=== PATIENT | female | born 1990 | race Caucasian/White ===

== ENCOUNTER 2017-08-01 18:17 | Emergency (ER) | payer MEDICAID ==
[2017-08-01 18:26] VITALS: BP 119/76
--- NOTE | 2017-08-01 18:55 | ED Physician Documentation ---
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) Musculoskeletal: None - Past Surgical History Past Surgical History: Yes Ortho: Other - Present Medications Home Medications: Ambulatory Orders Medication Instructions Recorded Confirmed Pnv No.122/Iron/Folic Acid 1 tab PO DAILY 08/01/17 08/01/17 [ Multi Tablet] - Allergies Allergies/Adverse Reactions: Allergies Allergy/AdvReac Type Severity Reaction Status Date / Time No Known Drug Allergies Allergy Verified 04/04/15 09:50 - Social History Does the pt smoke?: Yes Smoking Status: Current every day smoker - Immunizations Immunizations are current?: Yes PD ED PE NORMAL - Vitals Vital signs reviewed: Yes - Extremities Extremities: Other (L 5th finger moderately erythematous and swollen, single punctate spot in the center) Results - Vitals Vitals: Vital Signs - 24 hr 08/01/17 18:23 Temperature 36.3 C L Heart Rate 92 Respiratory 17 Rate Blood Pressure 119/76 O2 Saturation 98 Oxygen O2 Source Room air PD MEDICAL DECISION MAKING - ED course ED course: advised pt i could not possibly guess what might have been in the box to sting or bite her unlikely to be a spider with one puncture spot not infected at this time - just inflammed rec ice and tylenol return if worse Departure - Departure Disposition: 01 Home, Self Care Clinical Impression: Insect bite Qualifiers: Encounter type: initial encounter Qualified Code(s): W57.XXXA - Bitten or stung by nonvenomous insect and other nonvenomous arthropods, initial encounter Condition: Good Comments: I do not know what might have bit or stung you. There is no retained stinger on exam. There are not very many dangerous insects or spiders in [facility] Recommend ice and tylenol Return if worse as we discussed Follow up for your first OB appointment as planned
== END 2017-08-01 18:54 | disposition home or self-care (01) ==
LOC: ED 18:17
DX: S60.562A Insect bite (nonvenomous) of left hand, initial encounter (principal); W57.XXXA Bitten or stung by nonvenomous insect and other nonvenomous arthropods, initial encounter; Y93.89 Activity, other specified; F17.200 Nicotine dependence, unspecified, uncomplicated
CPT/HCPCS: 99282; 99283

== ENCOUNTER 2018-08-08 10:05 | Emergency (ER) | payer MEDICAID ==
[2018-08-08 10:10] VITALS: BP 126/73
--- NOTE | 2018-08-08 12:15 | ED Physician Documentation ---
PD HPI BACK PAIN - Stated complaint Stated Complaint: R SIDE PX - Chief complaint Chief Complaint: Ext Problem - History obtained from History obtained from: Patient - History of Present Illness Timing - onset: Other (For the last 6 months after an epidural she has had right low back pain. At the beginning it was radiating into the hip and leg but that is not persistent. The pain is worse over the last week. It is not associated with fevers, numbness, tingling, saddle anesthesia, weakness, or IV drug use. She is tried Tylenol and ibuprofen without relief.) Review of Systems Ten Systems: 10 systems reviewed and negative Constitutional: denies: Fever, Chills GI: denies: Abdominal Pain, Nausea, Vomiting : reports: Control (nexplanon). 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) Musculoskeletal: None - Past Surgical History Past Surgical History: Yes Ortho: Other - Present Medications Home Medications: Ambulatory Orders Medication Instructions Recorded Confirmed Cyclobenzaprine [Flexeril] 10 mg PO TID PRN #20 tablet 08/08/18 predniSONE [Deltasone] 20 mg PO [id number] #21 tab 08/08/18 - Allergies Allergies/Adverse Reactions: Allergies Allergy/AdvReac Type Severity Reaction Status Date / Time No Known Drug Allergies Allergy Verified 08/08/18 10:10 - Social History Does the pt smoke?: Yes Smoking Status: Current every day smoker - Immunizations Immunizations are current?: Yes PD ED PE NORMAL - Vitals Vital signs reviewed: Yes - General General: Alert and oriented X 3, No acute distress - Abdomen Abdomen: Soft, Non tender - Back Back: No spinal TTP, Other (Muscular tenderness and palpable right paralumbar sp asm. No midline tenderness. The patient has equal and normal Achilles and patellar reflexes bilaterally. Normal sensation in all areas of the legs. Patient denies saddle anesthesia. Normal strength in flexion-extension at the ankles, knees, and flexion of the hips.) - Neuro Neuro: Alert and oriented X 3, Normal speech Results - Vitals Vitals: Vital Signs - 24 hr 08/08/18 10:08 Temperature 36.3 C L Heart Rate 108 H Respiratory 16 Rate Blood Pressure 126/73 O2 Saturation 98 Oxygen O2 Source Room air PD MEDICAL DECISION MAKING - ED course ED course: This patient has seemingly uncomplicated musculoskeletal back pain. The patient has no "red flags." Specifically denies IV drug use, fevers, incontinence, saddle anesthesia. Spinal epidural abscess was considered, given that the patient has no fever, is not diabetic, has no spinal tenderness, does not use IV drugs, and has no bilateral neurologic symptoms, the diagnosis of spinal epidural abscess is considered exceedingly unlikely. Departure - Departure Disposition: 01 Home, Self Care Clinical Impression: Low back pain Qualifiers: Chronicity: acute Back pain laterality: right Sciatica presence: without sciatica Qualified Code(s): M54.5 - Low back pain Condition: Good Record reviewed to determine appropriate education?: Yes Instructions: ED Spasm Back No Trauma Prescriptions: Cyclobenzaprine [Flexeril] 10 mg PO TID PRN #20 tablet PRN Reason: Spasms predniSONE [Deltasone] 20 mg PO [id number] #21 tab Comments: As discussed, he should follow-up with your primary care physician for eval uation and consideration for physical therapy. Return for new or worsening symptoms.
== END 2018-08-08 12:21 | disposition home or self-care (01) ==
LOC: ED 10:05
DX: M54.5 Low back pain (principal); F17.200 Nicotine dependence, unspecified, uncomplicated
CPT/HCPCS: 99283